=== PATIENT | female | born 1990 ===

== ENCOUNTER 2017-02-18 21:45 | Emergency (ER) | payer MEDICAID, OTHER ==
[2017-02-18 22:29] LABS: SPECIFIC GRAVITY 1.015 (1.001-1.030); URINE BILIRUBIN NEGATIVE (NEGATIVE); URINE BLOOD 3+ (NEGATIVE); URINE GLUCOSE (UA) NEGATIVE (NEGATIVE); URINE LEUKOCYTE ESTERASE NEGATIVE (NEGATIVE); URINE NITRITE NEGATIVE (NEGATIVE); URINE PROTEIN NEGATIVE (NEGATIVE); URINE UROBILINOGEN NORMAL (0-1 mg/dl)
[2017-02-18 22:35] LABS: HCG,QUALITATIVE URINE NEGATIVE
[2017-02-18 22:38] LABS: URINE APPEARANCE CLEAR; URINE COLOR YELLOW
[2017-02-18 22:43] LABS: URINE BACTERIA 0; URINE EPITHELIAL CELLS 0-2 /hpf; URINE RBC 0-2 /hpf; URINE WBC 0-2 /hpf
[2017-02-18] MEDS ORDERED: DIPHENHYDRAMINE HCL 50 MG/1 ML VIAL ONE (23:20)
[2017-02-18] MEDS ORDERED: ACETAMINOPHEN 325 MG TABLET ONE (23:20)
[2017-02-18] MEDS ORDERED: KETOROLAC TROMETHAMINE 15 MG/ML VIAL ONE (23:20)
[2017-02-18] MEDS ORDERED: PROCHLORPERAZINE 5 MG/ML 2 ML VIAL ONE (23:20)
[2017-02-18] MEDS ORDERED: LACTATED RINGERS 1,000 ML ONE (23:21)
== END 2017-02-19 00:56 | disposition home or self-care (01) ==
LOC: ED 21:45
DX: R51 Headache (principal); B34.9 Viral infection, unspecified
CPT/HCPCS: 81025; 81001; 87804; 96375 ×2; 99283 ×2; 96374; 96361; J1200; J0780; J1885; A9270; J7120